=== PATIENT | male | born 1960 | race Caucasian/White ===

== ENCOUNTER 2017-08-02 18:43 | Inpatient (IN) | payer SELFPAY ==
[~2017-08-02] VITALS: Ht 172.7 cm; Wt 110.0 kg
[2017-08-02 18:56] VITALS: BP 145/79; PULSE 91; RESP 20; TEMP 98.1; O2SAT 97
[2017-08-02 19:35] VITALS: BP 154/78; PULSE 93; RESP 20; O2SAT 99
[2017-08-02] MEDS ORDERED: MORPHINE SULFATE 4 MG/ML INJ IV PUSH ONE (19:45)
[2017-08-02] MEDS ORDERED: ONDANSETRON HCL 4 MG/2 ML VIAL IV PUSH ONE (19:45)
[2017-08-02] MEDS ORDERED: SODIUM CHLORIDE 0.9% FLUSH 10 ML FLUSH IVF PRN (19:45)
--- NOTE | 2017-08-02 19:52 | PD ---
HPI Chief Complaint: Musculoskeletal Complaint Time Seen by Provider: 19:36 Travel History International Travel<30 days: No Contact w/Intl Traveler<30days: No Traveled to known affect area: No History of Present Illness HPI Patient states that while he was on the shallow end of the pool he jumped in and immediately felt sharp pain to his right ankle, 10 out of 10, worsened by any type of movement. Patient denies any alleviating factors. Patient denies any associated factors such as cold foot or bluish looking skin, any open lacerations, rash, or pain in any other area of his body. Patient otherwise has no current complaints other than right ankle pain. Patient states he only has allergies that he knows of tetanus vaccine, he got rash from Past medical/surgical history significant for hypertension and appendectomy. [facility] Past Medical History Hypertension: Yes Past Surgical History Appendectomy: Yes Social History Alcohol Use: Yes Tobacco Use: No Substance Use: No Allergies-Medications (Allergen,Severity, Reaction): Coded Allergies: tetanus and diphtheria toxoids (Unverified Adverse Reaction, Severe, Anaphylaxis, 08/02/17) Reported Meds & Prescriptions Reported Meds & Active Scripts Active Active Prescriptions or Reported Medications Unobtainable Review of Systems Musculoskeletal: Positive: Limited ROM, Pain (Right ankle) Physical Exam Narrative GENERAL: SKIN: Warm and dry. Medial malleolus skin tenting but without any skin tears/ laceration. HEAD: Atraumatic. Normocephalic. EYES: Pupils equal and round. No scleral icterus. No injection or drainage. ENT: No nasal bleeding or discharge. Mucous membranes pink and moist. NECK: Trachea midline. No JVD. CARDIOVASCULAR: Regular rate and rhythm. Patient's dorsalis pedis pulse 3+ is strong palpable capillary refill time is 2 seconds RESPIRATORY: No accessory muscle use. Clear to auscultation. Breath sounds equal bilaterally. GASTROINTESTINAL: Abdomen soft, non-tender, nondistended. Hepatic and splenic margins not palpable. MUSCULOSKELETAL: Extremities without clubbing, cyanosis, or edema. Patient has right ankle obvious deformity with lateral deviation at his medial malleolus. Of note no proximal tenderness to palpation when AP lateral pressure was applied to the proximal fibular head area, also no tenderness to palpation to the patella, negative anterior drawer negative posterior drawer and negative tenderness to palpation to MCL or LCL regions. NEUROLOGICAL: Awake and alert. No obvious cranial nerve deficits. Motor grossly within normal limits. Five out of 5 muscle strength in the arms and legs. Normal speech. PSYCHIATRIC: Appropriate mood and affect; insight and judgment normal. Data Data Last Documented VS Vital Signs Date Time Temp Pulse Resp B/P (MAP) Pulse Ox O2 Delivery O2 Flow Rate FiO2 08/02/17 20:29 20 98 Room Air 08/02/17 19:35 93 08/02/17 18:56 98.1 Orders Orders Ankle, Limited (Ap&Lat) (08/02/17 19:43) Tibia/Fibula (Ap/Lat) (08/02/17 19:43) Ice/Cold Pack (08/02/17 19:43) Splint Or Brace Apply/Monitor (08/02/17 19:43) Complete Blood Count With Diff (08/02/17 19:43) Prothrombin Time / Inr (Pt) (08/02/17 19:43) Act Partial Throm Time (Ptt) (08/02/17 19:43) Type And Screen (08/02/17 19:43) Iv Access Insert/Monitor (08/02/17 19:43) Ecg Monitoring (08/02/17 19:43) Oximetry (08/02/17 19:43) Oxygen Administration (08/02/17 19:43) Morphine Inj (Morphine Inj) (08/02/17 19:45) Ondansetron Inj (Zofran Inj) (08/02/17 19:45) Sodium Chloride 0.9% Flush (Ns Flush) (08/02/17 19:45) Propofol 200 Mg/20 Ml Inj (Diprivan 200 (08/02/17 20:45) Admit Order (Ed Use Only) (08/02/17 20:50) Labs Laboratory Tests Test 08/02/17 19:50 White Blood Count 8.0 TH/MM3 Red Blood Count 4.28 MIL/MM3 Hemoglobin 14.0 GM/DL Hematocrit 41.2 % Mean Corpuscular Volume 96.2 FL Mean Corpuscular Hemoglobin 32.6 PG Mean Corpuscular Hemoglobin Concent 33.9 % Red Cell Distribution Width 13.6 % Platelet Count 187 TH/MM3 Mean Platelet Volume 8.5 FL Neutrophils (%) (Auto) 68.8 % Lymphocytes (%) (Auto) 24.5 % Monocytes (%) (Auto) 5.7 % Eosinophils (%) (Auto) 0.7 % Basophils (%) (Auto) 0.3 % Neutrophils # (Auto) 5.5 TH/MM3 Lymphocytes # (Auto) 1.9 TH/MM3 Monocytes # (Auto) 0.5 TH/MM3 Eosinophils # (Auto) 0.1 TH/MM3 Basophils # (Auto) 0.0 TH/MM3 CBC Comment DIFF FINAL Differential Comment Prothrombin Time 10.4 SEC Prothromb Time International Ratio 1.0 RATIO Activated Partial Thromboplast Time 22.4 SEC MDM Medical Decision Making Medical Screen Exam Complete: Yes Emergency Medical Condition: Yes Medical Record Reviewed: Yes Differential Diagnosis Dislocation versus contusion versus fracture versus fracture dislocation Narrative Course After review of x-rays shows right ankle fracture dislocation closed Procedures Procedure Narrative After the risks and benefits were discussed the following procedure was performed: MODERATE SEDATION: The patient was placed on a shelter monitor and pulse oximetry. An ambu bag and suction was immediately available at bedside. The patient was monitored by the nurse. Oxygen saturation, heart rate and blood pressure were monitored. Procedural sedation was acheived using [150MG DIPRIVAN ] . The patient was observed until awake and alert. Procedural Sedation time in attendance was [40] minutes. Using traction countertraction technique right lateral dislocation was reduced to anatomical position, dorsalis pedis pulse remained strong throughout entire procedure, [employer] at bedside placing a posterior long leg splint and ankle stirrup OCL Diagnosis Primary Impression: Closed right ankle fracture dislocation Additional Impression: Status post close reduction Admitting Information Admitting Physician Requests: Admit Scripts Unable to Obtain Active Prescriptions or Reported Jaxon Shen MD Aug 02, 2017 19:52
--- NOTE | 2017-08-02 20:24 | RADRPT ---
EXAM DATE/TIME: 08/02/2017 20:00 [facility] COMPARISON: No previous studies available for comparison. INDICATIONS : Ankle pain after jumping in shallow end of pool. MEDICAL HISTORY : None. SURGICAL HISTORY : None. ENCOUNTER: Initial ACUITY: 1 day PAIN SCORE: 10/10 LOCATION: Right ankle FINDINGS: Fracture dislocation of the ankle. The distal fibula is fractured. There is medial dislocation of t he distal tibia with fracture across the minimally this. The tibia is dislocated anteriorly and medially. CONCLUSION: Fracture dislocation at the ankle.. Casimiro Silver MD FACR on August 02, 2017 at 20:21 Board Certified Radiologist. This report was verified electronically.
--- NOTE | 2017-08-02 20:25 | RADRPT ---
EXAM DATE/TIME: 08/02/2017 20:00 [facility] COMPARISON: No previous studies available for comparison. INDICATIONS : Ankle pain after jumping in shallow end of pool. MEDICAL HISTORY : None. SURGICAL HISTORY : None. ENCOUNTER: Initial ACUITY: 1 day PAIN SCORE: 10/10 LOCATION: Right ankle FINDINGS: Fracture dislocation at the ankle with the distal tibia fracture that B. level of the tibial plafond and dislocated medially and anteriorly. Fibula is fractured as well approximately 5 cm above the tibial plafond. CONCLUSION: Fracture dislocation as above. Casimiro Silver MD FACR on August 02, 2017 at 20:22 Board Certified Radiologist. This report was verified electronically.
[2017-08-02 20:29] VITALS: RESP 20; O2SAT 98
[2017-08-02 20:44] LABS: AUTOMATED NEUTROPHIL # 5.5 TH/MM3 (1.8-7.7); BASOPHIL % 0.3 % (0.0-2.0); EOSINOPHIL # 0.1 TH/MM3 (0-0.4); EOSINOPHIL % 0.7 % (0.0-4.0); HEMATOCRIT 41.2 % (39.0-51.0); LYMPH % 24.5 % (9.0-44.0); LYMPHOCYTE # 1.9 TH/MM3 (1.0-4.8); MEAN CELL VOLUME 96.2 FL (80.0-100.0); MEAN CORPUSCULAR HEMOGLOBIN 32.6 PG (27.0-34.0); MEAN CORPUSCULAR HGB CONC 33.9 % (32.0-36.0); MEAN PLATELET VOLUME 8.5 FL (7.0-11.0); MONO % 5.7 % (0.0-8.0); MONOCYTE # 0.5 TH/MM3 (0-0.9); NEUT % 68.8 % (16.0-70.0); PLATELET COUNT 187 TH/MM3 (150-450); RED BLOOD COUNT 4.28 MIL/MM3 (4.50-5.90); RED CELL DISTRIBUTION WIDTH 13.6 % (11.6-17.2)
[2017-08-02] MEDS ORDERED: PROPOFOL 200 MG/20 ML AMP IV ONE ×2 (20:45→21:30)
[2017-08-02 21:05] LABS: PROTHROMBIN TIME - PATIENT 10.4 SEC (9.8-11.6)
--- NOTE | 2017-08-02 21:41 | RADRPT ---
EXAM DATE/TIME: 08/02/2017 21:15 [facility] COMPARISON: TIBIA/FIBULA RIGHT (AP/LAT), August 02, 2017, 20:00. INDICATIONS : Post reduction right tibia, fell MEDICAL HISTORY : None. SURGICAL HISTORY : None. ENCOUNTER: Subsequent ACUITY: 1 day PAIN SCORE: 2/10 LOCATION: Right Tibia FINDINGS: Alignment is not anatomic. The medial malleolus appears trapped against the tibial plafond. CONCLUSION: Alignment as above Casimiro Silver MD FACR on August 02, 2017 at 21:37 Board Certified Radiologist. This report was verified electronically.
[2017-08-02] MEDS ORDERED: ACETAMINOPHEN 325 MG TAB PO PRN (22:30)
[2017-08-02] MEDS ORDERED: BISACODYL 10 MG SUPP RECTAL PRN (22:30)
[2017-08-02] MEDS ORDERED: ONDANSETRON HCL 4 MG/2 ML VIAL IVP PRN (22:30)
[2017-08-02] MEDS ORDERED: MAGNESIUM HYDROXIDE SUSP 30 ML CUP PO PRN (22:30)
[2017-08-02] MEDS ORDERED: ACETAMINOPHEN/HYDROcodone 325 MG/5 MG TAB PO PRN (22:30)
[2017-08-02] MEDS ORDERED: SENNOSIDES 8.6 MG TAB PO PRN (22:30)
[2017-08-02] MEDS ORDERED: SODIUM CHLORIDE 0.9% FLUSH 10 ML FLUSH IV FLUSH PRN (22:30)
[2017-08-02] MEDS ORDERED: LACTULOSE SYRUP 20 GM/30 ML CUP PO PRN (22:30)
[2017-08-02 22:41] VITALS: BP 169/84; PULSE 96; RESP 18; TEMP 97.8; O2SAT 97
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
[2017-08-02] MEDS: SODIUM CHLOR 0.9% 1000 ML INJ 1,000 ML IV SCH (23:30)
[2017-08-02] MEDS: MORPHINE SULFATE 2 MG/ML INJ IV PUSH PRN (23:37)
[2017-08-03] MEDS ORDERED: SODIUM CHLORID 0.9% 500 ML IV PRN (01:30)
[2017-08-03] MEDS ORDERED: CHLORHEXIDINE GLUCONATE 2 % 1 PACK (2 CLOTHS) TOPICAL PRN (01:30)
[2017-08-03] MEDS ORDERED: POVIDONE IODINE 5% (ANTISEPSIS KIT) 4 APPLICATIONS EACH NARE PRN (01:30)
[2017-08-03] MEDS: MORPHINE SULFATE 2 MG/ML INJ IV PUSH PRN ×2 (02:51→06:29)
[2017-08-03 04:00] VITALS: BP 190/92; PULSE 98; RESP 20; TEMP 97.4; O2SAT 97
[2017-08-03 06:25] LABS: ALT (GPT) 37 U/L (12-78)
[2017-08-03 06:27] LABS: ALKALINE PHOSPHATASE 41 U/L (45-117); TOTAL BILIRUBIN ADULT 0.4 MG/DL (0.2-1.0); TOTAL PROTEIN 7.2 GM/DL (6.4-8.2)
[2017-08-03 06:31] LABS: ALBUMIN 3.4 GM/DL (3.4-5.0); AST (GOT) 25 U/L (15-37); BICARBONATE 24.7 MEQ/L (21.0-32.0); BLOOD UREA NITROGEN 14 MG/DL (7-18); CALCIUM 8.3 MG/DL (8.5-10.1); CHLORIDE 103 MEQ/L (98-107); CREATININE 0.99 MG/DL (0.60-1.30); GLOMERULAR FILTRATION RATE 78 ML/MIN (>89); GLUCOSE,RANDOM 107 MG/DL (74-106); SODIUM (NA) 137 MEQ/L (136-145)
[2017-08-03] MEDS: LACTATED RINGER'S 1000 ML IV PRN ×2 (06:39→07:33)
[2017-08-03] MEDS ORDERED: ceFAZolin INJ 1,000 MG VIAL ONE (06:48)
[2017-08-03] MEDS ORDERED: VANCOMYCIN HCL 1000 MG VIAL ONE (06:48)
[2017-08-03] MEDS ORDERED: GENTAMICIN SULFATE 80 MG/2 ML VIAL ONE (06:49)
[2017-08-03] MEDS ORDERED: SODIUM CHLOR 0.9% 250 ML INJ 250 ML ONE (06:49)
[2017-08-03] MEDS ORDERED: ACETAMINOPHEN 1000 MG/100 ML 100 ML IV ONE (07:13)
[2017-08-03 07:16] LABS: AUTOMATED NEUTROPHIL # 6.6 TH/MM3 (1.8-7.7); BASOPHIL % 0.2 % (0.0-2.0); EOSINOPHIL # 0.1 TH/MM3 (0-0.4); EOSINOPHIL % 0.5 % (0.0-4.0); HEMOGLOBIN 12.8 GM/DL (13.0-17.0); LYMPHOCYTE # 2.2 TH/MM3 (1.0-4.8); MEAN CELL VOLUME 95.6 FL (80.0-100.0); MEAN CORPUSCULAR HEMOGLOBIN 32.9 PG (27.0-34.0); MEAN CORPUSCULAR HGB CONC 34.4 % (32.0-36.0); MEAN PLATELET VOLUME 8.3 FL (7.0-11.0); MONO % 7.9 % (0.0-8.0); MONOCYTE # 0.8 TH/MM3 (0-0.9); NEUT % 68.4 % (16.0-70.0); PLATELET COUNT 173 TH/MM3 (150-450); RED BLOOD COUNT 3.88 MIL/MM3 (4.50-5.90); RED CELL DISTRIBUTION WIDTH 13.7 % (11.6-17.2); WHITE BLOOD COUNT 9.6 TH/MM3 (4.0-11.0)
[2017-08-03] MEDS: SODIUM CHLOR 0.9% 1000 ML INJ 1,000 ML IV SCH ×2 (08:19→15:50)
[2017-08-03] MEDS ORDERED: HYDR-3366 PO (08:50)
[2017-08-03] MEDS ORDERED: XARE10TA PO (08:50)
--- NOTE | 2017-08-03 08:53 | PD.OP ---
cc: Rock Love MD Operative Report Date of Surgery: Aug 03, 2017 Preoperative Diagnosis: Displaced right ankle trimalleolar fracture Postoperative Diagnosis: Procedure: Open reduction internal fixation right ankle trimalleolar fracture, stress exam of syndesmosis, open reduction and fixation right ankle syndesmosis Anesthesia: Gen. Surgeon: Rock Love Brass Polisher(s): TIERA Vargas PA-C The surgical procedure was assisted by my physician physical laboratory assistant. My P.A. presence was necessary throughout this case for the manipulation and positioning of the surgical extremity. My P.A. was assisting me throughout the duration of this procedure. The skill set of a physician physical laboratory assistant was medically necessary to complete this procedure. During the surgical case the instructor adjunct surgical technician was working at the back table and the physician physical laboratory assistant was directly assisting me. Operation and Findings: Implants used: Synthes Plan of activity: Nonweightbearing 6 weeks Patient was seen and evaluated preoperatively and found to have a displaced right ankle trimalleolar ankle fracture. Informed consent was obtained after a detailed discussion of risk and benefits of surgery. The operative site was marked. Patient was brought to the OR, placed on the OR table, and given IV sedation and general endotracheal anesthesia. IV antibiotics were given preoperatively. A timeout procedure was performed. The left leg was prepped with alcohol followed by Hibiclens and draped in the usual sterile fashion. Attention was turned towards the distal fibula. A four-inch incision was made over the distal fibula. The subcutaneous tissue was dissected with Bovie. The fracture site was visualized. The fracture site was cleaned with curets. The fracture was now reduced. The fracture keyed into anatomic alignment. K-wires were used to hold provisional fixation. A Synthes plate was selected. The plate was provisionally held to bone with K-wires. 3.5 cortical screws were used to compress the plate to bone. Multiple screws were placed above and below the fracture. Next attention was turned towards the medial malleolus. The medial malleolus supposed through a 3 cm incision. Saphenous vein was retracted. Fracture was visualized. Fracture was cleaned with curettes. Fracture was now reduced and keyed into anatomic alignment. K wires were used to hold provisional fixation. 2 guidepins for the 4.0 cannulated screws were placed in a retrograde fashion across the fracture. Fluoroscopy was used to confirm guidepin placement. Cannulated drill was placed over the guidepin. 2 appropriate length screws were now placed. Good compression was applied. Fluoroscopy confirmed well aligned fracture with well-placed hardware. Next, attention was turned to the syndesmosis. The syndesmosis was stressed. There was clear widening of the syndesmosis with external rotation of the ankle. The syndesmosis was now held in a reduced position with the ankle in neutral position. Two Synthes 3.5 cortical screws were now placed through the fibula plate into the tibia. Fluoroscopy confirmed appropriate screw placement with well-aligned syndesmosis. Incisions were thoroughly irrigated. The subcutaneous tissue was closed with 3-0 Vicryl and the skin was closed with 3-0 nylon. Sterile dressings were applied. A well molded well-padded splint was applied. The patient was transferred to Recovery in stable condition. Needle and sponge counts were correct. Rock Love MD Aug 03, 2017 08:53
[2017-08-03] MEDS: DOCUSATE SODIUM 50 MG/SENNA 8.6 MG TAB PO SCH ×2 (09:00→19:36)
[2017-08-03] MEDS ORDERED: MORPHINE SULFATE 4 MG/ML INJ IV PUSH PRN (09:00)
[2017-08-03] MEDS ORDERED: Post-op Orders (for Pharmacy) XX ONE (09:00)
[2017-08-03] MEDS: SODIUM CHLORIDE 0.9% FLUSH 10 ML FLUSH IV FLUSH SCH ×2 (09:00→21:00)
[2017-08-03] MEDS ORDERED: NALOXONE HCL 0.4 MG/ML AMP ONE (09:25)
[2017-08-03] MEDS ORDERED: DO NOT ADM ANY ANTICOAGULANT DRUGS PRN (09:38)
[2017-08-03] MEDS ORDERED: MIDAZOLAM HCL 2 MG/2 ML VIAL ONE (09:50)
[2017-08-03] MEDS ORDERED: INFLUENZA VIRUS VACCINE (QUADRIVALENT) 0.5 ML SYR IM ONE (10:00)
[2017-08-03] MEDS ORDERED: *morphine SULFATE 4 MG/ML PERIprocedure ONLY ONE ×2 (10:02→10:09)
[2017-08-03] MEDS ORDERED: HYDROmorphone HCL PF 2 MG/ML VIAL ONE (10:17)
[2017-08-03 11:00] VITALS: BP 158/72; PULSE 99; RESP 18; TEMP 97.7; O2SAT 91
--- NOTE | 2017-08-03 11:50 | HHI.PR ---
Subjective Remarks Mr. Fisher is a 57-year-old patient with a history of hypertension who jumped into the shallow end of a pool and immediately felt sharp pain to his right ankle. Right ankle dislocation with tibia and fibula fracture noted on ankle x- ray. The ER physician attempted manual closed reduction. The patient is admitted to the hospitalist service for surgical repair of ankle fracture dislocation. Dr. Rock Garay, orthopedic surgeon, has been consulted. The patient is seen in his hospital room. He reports that his pain level was 10 out of 10, sharp and stabbing upon presentation to the emergency room. He states that the medication given down in the ED brought his pain level down to a 3 or 4 but it is creeping back up again. He is requesting additional pain medication. He is from [place] and was vacationing here in [place] since last Thursday. He is supposed to return home tomorrow. 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 The patient has hypertension and takes what I believe to be Diovan 80 mg p.o. every morning. His will bring his medication in the morning for clarification. He denies any recent fevers, chills, chest pain, shortness of breath, nausea, vomiting, or diarrhea. He states he was in his normal state of health prior to jumping in the pool today. 08-[address] GARAY Open reduction internal fixation right ankle trimalleolar fracture, stress exam of syndesmosis, open reduction and fixation right ankle syndesmosis NO NEW COMPLAINTS AT THIS TIME DW RN AND PT AND CM Objective Vitals Vital Signs Date Time Temp Pulse Resp B/P (MAP) Pulse Ox O2 Delivery O2 Flow Rate FiO2 08/03/17 10:30 98.6 92 22 158/65 (96) 95 Nasal Cannula 2 08/03/17 10:15 94 20 161/57 (91) 96 Nasal Cannula 2 08/03/17 10:00 92 20 178/75 (109) 97 Nasal Cannula 2 08/03/17 09:45 91 22 197/91 (126) 98 Nasal Cannula 2 08/03/17 09:39 98.5 90 15 180/98 (125) 100 Simple Mask 6 08/03/17 04:00 97.4 98 20 190/92 (124) 97 08/02/17 22:41 97.8 96 18 169/84 (112) 97 08/02/17 22:26 08/02/17 20:29 20 98 Room Air 08/02/17 20:28 99 Room Air 08/02/17 19:35 93 20 154/78 (103) 99 Room Air 08/02/17 19:34 95 20 08/02/17 18:56 98.1 91 20 145/79 (101) 97 I/O 08/02/17 08/02/17 08/02/17 08/03/17 08/03/17 08/03/17 07:00 15:00 23:00 07:00 15:00 23:00 Intake Total 1200 ml Output Total 925 ml 50 ml Balance -925 ml 1150 ml Other 1200 ml Output Urine Total 925 ml Estimated Blood Loss 50 ml # Voids 1 Result Diagram: 08/03/17 0535 08/03/17 0535 Other Results Laboratory Tests Test 08/02/17 19:50 08/03/17 05:35 White Blood Count 8.0 TH/MM3 9.6 TH/MM3 Red Blood Count 4.28 MIL/MM3 3.88 MIL/MM3 Hemoglobin 14.0 GM/DL 12.8 GM/DL Hematocrit 41.2 % 37.0 % Mean Corpuscular Volume 96.2 FL 95.6 FL Mean Corpuscular Hemoglobin 32.6 PG 32.9 PG Mean Corpuscular Hemoglobin Concent 33.9 % 34.4 % Red Cell Distribution Width 13.6 % 13.7 % Platelet Count 187 TH/MM3 173 TH/MM3 Mean Platelet Volume 8.5 FL 8.3 FL Neutrophils (%) (Auto) 68.8 % 68.4 % Lymphocytes (%) (Auto) 24.5 % 23.0 % Monocytes (%) (Auto) 5.7 % 7.9 % Eosinophils (%) (Auto) 0.7 % 0.5 % Basophils (%) (Auto) 0.3 % 0.2 % Neutrophils # (Auto) 5.5 TH/MM3 6.6 TH/MM3 Lymphocytes # (Auto) 1.9 TH/MM3 2.2 TH/MM3 Monocytes # (Auto) 0.5 TH/MM3 0.8 TH/MM3 Eosinophils # (Auto) 0.1 TH/MM3 0.1 TH/MM3 Basophils # (Auto) 0.0 TH/MM3 0.0 TH/MM3 CBC Comment DIFF FINAL DIFF FINAL Differential Comment Prothrombin Time 10.4 SEC Prothromb Time International Ratio 1.0 RATIO Activated Partial Thromboplast Time 22.4 SEC Blood Urea Nitrogen 14 MG/DL Creatinine 0.99 MG/DL Random Glucose 107 MG/DL Total Protein 7.2 GM/DL Albumin 3.4 GM/DL Calcium Level 8.3 MG/DL Alkaline Phosphatase 41 U/L Aspartate Amino Transf (AST/SGOT) 25 U/L Alanine Aminotransferase (ALT/SGPT) 37 U/L Total Bilirubin 0.4 MG/DL Sodium Level 137 MEQ/L Potassium Level 4.0 MEQ/L Chloride Level 103 MEQ/L Carbon Dioxide Level 24.7 MEQ/L Anion Gap 9 MEQ/L Estimat Glomerular Filtration Rate 78 ML/MIN Objective Remarks GENERAL: Alert and oriented 3 talkative and cooperative SKIN: Warm and dry. Right lower extremity is dressed HEAD: Atraumatic. Normocephalic. EYES: Pupils equal and round. No scleral icterus. No injection or drainage. Extraocular muscles intact ENT: No nasal bleeding or discharge. Mucous membranes pink and moist. Tongue is midline NECK: Trachea midline. No JVD. Supple CARDIOVASCULAR: Regular rate and rhythm. S1-S2 no S3 or S4 RESPIRATORY: No accessory muscle use. Clear to auscultation. Breath sounds equal bilaterally. GASTROINTESTINAL: Abdomen soft, non-tender, nondistended. Hepatic and splenic margins not palpable. MUSCULOSKELETAL: Extremities without clubbing, cyanosis, or edema. No obvious deformities. Right lower extremity is dressed in splint NEUROLOGICAL: Awake and alert. No obvious cranial nerve deficits. Motor grossly within normal limits. Five out of 5 muscle strength in the arms and legs except right lower extremity not able to really assess at this point. Normal speech. PSYCHIATRIC: Appropriate mood and affect; insight and judgment normal. Procedures Open reduction internal fixation right ankle trimalleolar fracture, stress exam of syndesmosis, open reduction and fixation right ankle syndesmosis 08-03 Date of Surgery: Aug 03, 2017 Preoperative Diagnosis: Displaced right ankle trimalleolar fracture Postoperative Diagnosis: Procedure: Open reduction internal fixation right ankle trimalleolar fracture, stress exam of syndesmosis, open reduction and fixation right ankle syndesmosis Anesthesia: Gen. Surgeon: Rock Garay Primary Care Md(s): TIERA Vargas PA-C The surgical procedure was assisted by my physician care assistant. My P.A. presence was necessary throughout this case for the manipulation and positioning of the surgical extremity. My P.A. was assisting me throughout the duration of this procedure. The skill set of a physician care assistant was medically necessary to complete this procedure. During the surgical case the certified ophthalmic surgical assistant was working at the back table and the physician care assistant was directly assisting me. Operation and Findings: Implants used: Synthes Plan of activity: Nonweightbearing 6 weeks Patient was seen and evaluated preoperatively and found to have a displaced right ankle trimalleolar ankle fracture. Informed consent was obtained after a detailed discussion of risk and benefits of surgery. The operative site was marked. Patient was brought to the OR, placed on the OR table, and given IV sedation and general endotracheal anesthesia. IV antibiotics were given preoperatively. A timeout procedure was performed. The left leg was prepped with alcohol followed by Hibiclens and draped in the usual sterile fashion. Attention was turned towards the distal fibula. A four-inch incision was made over the distal fibula. The subcutaneous tissue was dissected with Bovie. The fracture site was visualized. The fracture site was cleaned with curets. The fracture was now reduced. The fracture keyed into anatomic alignment. K-wires were used to hold provisional fixation. A Synthes plate was selected. The plate was provisionally held to bone with K-wires. 3.5 cortical screws were used to compress the plate to bone. Multiple screws were placed above and below the fracture. Next attention was turned towards the medial malleolus. The medial malleolus supposed through a 3 cm incision. Saphenous vein was retracted. Fracture was visualized. Fracture was cleaned with curettes. Fracture was now reduced and keyed into anatomic alignment. K wires were used to hold provisional fixation. 2 guidepins for the 4.0 cannulated screws were placed in a retrograde fashion across the fracture. Fluoroscopy was used to confirm guidepin placement. Cannulated drill was placed over the guidepin. 2 appropriate length screws were now placed. Good compression was applied. Fluoroscopy confirmed well aligned fracture with well-placed hardware. Next, attention was turned to the syndesmosis. The syndesmosis was stressed. There was clear widening of the syndesmosis with external rotation of the ankle. The syndesmosis was now held in a reduced position with the ankle in neutral position. Two Synthes 3.5 cortical screws were now placed through the fibula plate into the tibia. Fluoroscopy confirmed appropriate screw placement with well-aligned syndesmosis. Incisions were thoroughly irrigated. The subcutaneous tissue was closed with 3-0 Vicryl and the skin was closed with 3-0 nylon. Sterile dressings were applied. A well molded well-padded splint was applied. The patient was transferred to Recovery in stable condition. Needle and sponge counts were correct. Rock Garay MD Aug 03, 2017 08:53 Medications and IVs Current Medications Morphine Sulfate (Morphine Inj) 4 mg ONCE ONCE IV PUSH Last administered on 19:53; Start 08/02/17 at 19:45; Stop 08/02/17 at 19:46; Status DC Ondansetron HCl (Zofran Inj) 4 mg ONCE ONCE IV PUSH Last administered on 19:53; Start 08/02/17 at 19:45; Stop 08/02/17 at 19:46; Status DC Sodium Chloride (NS Flush) 2 ml UNSCH PRN IVF FLUSH AFTER USING IV ACCESS; Start 08/02/17 at 19:45; Stop 08/02/17 at 22:43; Status DC Propofol (Diprivan 200 Mg/20 ml Inj) 50 mg ONCE ONCE IV ; Start 08/02/17 at 20 :45; Stop 08/02/17 at 21:20; Status DC Propofol (Diprivan 200 Mg/20 ml Inj) 200 mg ONCE ONCE IV Last administered on 08/02/17at 21:38; Start 08/02/17 at 21:30; Stop 08/02/17 at 21:31; Status DC Sodium Chloride 1,000 ml @ 100 mls/hr Q10H IV Last administered on 08/02/17 23:30; Start 08/02/17 at 22:19 Sodium Chloride (NS Flush) 2 ml UNSCH PRN IV FLUSH FLUSH AFTER USING IV ACCESS ; Start 08/02/17 at 22:30 Sodium Chloride (NS Flush) 2 ml BID IV FLUSH ; Start 08/03/17 at 09:00 Ondansetron HCl (Zofran Inj) 4 mg Q6H PRN IVP NAUSEA OR VOMITING Last administered on 3/25/18at 23:37; Start 08/02/17 at 22:30 Acetaminophen (Tylenol) 650 mg Q6H PRN PO FEVER/PAIN SCALE 1 TO 2; Start at 22:30 Acetaminophen/ Hydrocodone Bitart (Wapello 5-325 Mg) 1 tab Q4H PRN PO PAIN SCALE 3 TO 5; Start 08/02/17 at 22:30; Stop 08/03/17 at 10:09; Status DC Morphine Sulfate (Morphine Inj) 2 mg Q3H PRN IV PUSH Pain 6-10 Last administered on 08/03/17at 06:29; Start 08/02/17 at 22:30; Stop 08/03/17 at 10:10 ; Status DC Senna/Docusate Sodium (Sona-Colace) 1 tab BID PO ; Start 08/03/17 at 09:00 Magnesium Hydroxide (Milk Of Magnesia Liq) 30 ml Q12H PRN PO Mild constipation ; Start 08/02/17 at 22:30 Sennosides (Senokot) 17.2 mg Q12H PRN PO Moderate constipation; Start 08/02/17 at 22:30 Bisacodyl (Dulcolax Supp) 10 mg DAILY PRN RECTAL SEVERE CONSITIPATION; Start at 22:30 Lactulose (Lactulose Liq) 30 ml DAILY PRN PO SEVERE CONSITIPATION; Start at 22:30 Influenza Virus Vaccine (Flu (Quadrivalent) Vaccine Inj) 0.5 ml ONCE ONCE IM ; Start 08/03/17 at 10:00; Stop 08/03/17 at 10:01; Status DC Lactated Ringer's 1,000 ml @ 30 mls/hr Q24H PRN IV SEE LABEL COMMENTS Last administered on 08/03/17at 07:33; Start 08/03/17 at 01:30; Stop 08/06/17 at 01:29 Sodium Chloride 500 ml @ 30 mls/hr [id number] PRN IV SEE LABEL COMMENTS; Start at 01:30; Stop 08/06/17 at 01:29 Povidone Iodine (Betadine 5% Antisepsis Kit) 1 applic GAGE DESIGNER PRN EACH NARE SEE LABEL COMMENTS; Start 08/03/17 at 01:30; Stop 08/06/17 at 01:29 Chlorhexidine Gluconate (Chlorhexidine 2% Cloth) 3 pack GAGE DESIGNER PRN TOPICAL SEE LABEL COMMENTS; Start 08/03/17 at 01:30; Stop 08/06/17 at 01:29 Vancomycin HCl (Vancomycin Inj) 1,000 mg STK-MED ONCE .ROUTE Last administered on 08/03/17at 08:07; Start 08/03/17 at 06:48; Stop 08/03/17 at 06:49; Status DC Cefazolin Sodium (Ancef Inj) 2,000 mg STK-MED ONCE .ROUTE Last administered on 08/03/17at 08:13; Start 08/03/17 at 06:48; Stop 08/03/17 at 06:49; Status DC Gentamicin Sulfate (Gentamicin Inj) 240 mg STK-MED ONCE .ROUTE Last administered on 08/03/17at 08:18; Start 08/03/17 at 06:49; Stop 08/03/17 at 06:50 ; Status DC Sodium Chloride 250 ml @ As Directed STK-MED ONCE .ROUTE Last administered on 08/03/17at 08:07; Start 08/03/17 at 06:49; Stop 08/03/17 at 06:50; Status DC Acetaminophen 100 ml @ As Directed STK-MED ONCE IV ; Start 08/03/17 at 07:13; Stop 08/03/17 at 07:14; Status DC Miscellaneous Information (Post-op Orders (for Pharmacy)) STAT ONCE XX ; Start 08/03/17 at 09:00; Stop 08/03/17 at 10:10; Status DC Cefazolin Sodium/ Dextrose 50 ml @ 100 mls/hr Q8H IV ; Start 08/03/17 at 16:00 ; Stop 08/03/17 at 16:29 Acetaminophen/ Hydrocodone Bitart (Wapello 10-325 Mg) 1 tab Q3H PRN PO PAIN 3<10 ; Start 08/03/17 at 09:00 Morphine Sulfate (Morphine Inj) 4 mg Q3H PRN IV PUSH break thru pain; Start at 09:00 Naloxone HCl (Narcan Inj) 0.4 mg STK-MED ONCE .ROUTE ; Start 08/03/17 at 09:25; Stop 08/03/17 at 09:26; Status DC Midazolam HCl (Versed Inj) 2 mg STK-MED ONCE .ROUTE ; Start 08/03/17 at 09:50; Stop 08/03/17 at 09:51; Status DC Fentanyl Citrate (fentaNYL INJ) 100 mcg STK-MED ONCE .ROUTE ; Start 08/03/17 at 09:50; Stop 08/03/17 at 09:51; Status DC Morphine Sulfate (*morphine INJ PERIprocedure ONLY) 4 mg STK-MED ONCE .ROUTE Last administered on 08/03/17at 10:04; Start 08/03/17 at 10:02; Stop 08/03/17 at 10:03; Status DC Morphine Sulfate (*morphine INJ PERIprocedure ONLY) 4 mg STK-MED ONCE .ROUTE Last administered on 08/03/17at 10:10; Start 08/03/17 at 10:09; Stop 08/03/17 at 10:10; Status DC Hydromorphone HCl (Dilaudid Pf Inj) 2 mg STK-MED ONCE .ROUTE Last administered on 08/03/17at 10:18; Start 08/03/17 at 10:17; Stop 08/03/17 at 10:18; Status DC Miscellaneous Information ALL NURSING DEPARTME... UNSCH PRN .XX SEE LABEL COMMENTS; Start 08/03/17 at 09:38; Stop 08/04/17 at 09:37 A/P Problem List: (1) Tibia/fibula fracture ICD Code: S82.209A - Unspecified fracture of shaft of unspecified tibia, initial encounter for closed fracture; S82.409A - Unspecified fracture of shaft of unspecified fibula, initial encounter for closed fracture (2) Ankle dislocation ICD Code: S93.06XA - Dislocation of unspecified ankle joint, initial encounter Assessment and Plan Mr. Fisher is a 57-year-old patient with a history of hypertension who jumped into the shallow end of a pool and immediately felt sharp pain to his right ankle. Right ankle dislocation with tibia and fibula fracture noted on ankle x- ray. The patient is admitted to the hospitalist service for surgical repair of ankle fracture dislocation. Ankle dislocation with tibia and fibula fractures - The patient underwent closed reduction was attempted in the ER and a long-leg splint was applied to right leg following the procedure. - Orthopedics consulted, Dr. Garay aware, appreciate assistance - Analgesia with as needed morphine and Wapello as needed for pain - NPO. for surgery in the morning - IV fluid hydration with normal saline at 100 cc/h Hypertension resume his home medications if able to be reconciled if not as needed Catapres DVT prophylaxis - SCD/BAUDILIO to nonoperative leg Discharge Planning Pending orthopedic clearance and physical therapy and occupational clear Casimiro Frost DO Aug 03, 2017 11:50
[2017-08-03] MEDS ORDERED: METOPROLOL TARTRATE 5 MG/5 ML VIAL IV ONE (12:00)
[2017-08-03] MEDS ORDERED: GLYCOPYRROLATE 1 MG/5 ML SYRINGE IV PUSH ONE (12:00)
[2017-08-03] MEDS ORDERED: DEXAMETHASONE SOD PHOS 4 MG/ML VIAL IV ONE (12:00)
[2017-08-03] MEDS ORDERED: PROPOFOL 200 MG/20 ML AMP IV ONE (12:00)
[2017-08-03] MEDS ORDERED: SUCCINYLCHOLINE CHLORIDE 100 MG/5 ML SYRINGE IV PUSH ONE (12:00)
[2017-08-03] MEDS ORDERED: ONDANSETRON HCL 4 MG/2 ML VIAL IV ONE (12:00)
[2017-08-03] MEDS ORDERED: NEOSTIGMINE 5 MG/5 ML SYRINGE IV PUSH ONE (12:00)
[2017-08-03] MEDS ORDERED: cloNIDine HCL 0.1 MG TAB PO PRN (12:00)
[2017-08-03] MEDS ORDERED: hydrALAZINE HCL 20 MG/ML VIAL IV ONE (12:00)
[2017-08-03] MEDS ORDERED: SODIUM CHLORIDE 0.9% 20 ML VIAL IV ONE (12:00)
[2017-08-03] MEDS ORDERED: LIDOCAINE HCL 1% PF 5 ML SYRINGE OTHER ONE (12:00)
--- NOTE | 2017-08-03 12:04 | MB ---
cc: Rock Xavier MD DATE: 08/03/2017 REASON FOR CONSULTATION: Right ankle trimalleolar fracture-dislocation. CONSULTING PHYSICIAN: Dr. Gan. HISTORY OF PRESENT ILLNESS: Ramses is a 57-year-old male who is visiting from [place]. He jumped into a pool. The pool was more shallow than he thought. He had immediate right ankle pain and deformity. He presented to the Emergency Room where x-rays revealed a fracture-dislocation of his right ankle. He has been admitted for treatment of this injury. He underwent closed reduction in the emergency room. He is currently awake and alert on the orthopedic floor. His only complaint is his right ankle. Pain is improved with rest. He denies any dizziness, syncope or loss of consciousness. PAST MEDICAL HISTORY: Illnesses: Hypertension. PAST SURGICAL HISTORY: Appendectomy and left hand surgery. MEDICATIONS: Diovan. ALLERGIES: TETANUS AND DIPHTHERIA TOXINS. SOCIAL HISTORY: The patient denies tobacco or drug use. He drinks alcohol occasionally. REVIEW OF SYSTEMS: The patient denies headache, visual changes, neck pain, chest pain, shortness of breath, abdominal pain, nausea, vomiting, recent weight loss, fever, chills or numbness or tingling of extremities. He complains of right ankle pain. The pain is worse with movement. FAMILY HISTORY: Positive for myocardial infarction in his father and brother. PHYSICAL EXAMINATION: GENERAL: The patient is a well-developed, well-nourished, 57-year-old male in no acute distress. He is awake and alert. He is alert and oriented x 3. He is mildly overweight. VITAL SIGNS: Temperature 97.4, pulse 98, respirations 20, blood pressure 190/92, O2 saturation 97% on room air. HEENT: The patient is normocephalic. Pupils are equal. NECK: Soft, nontender. The trachea is in the midline. ABDOMEN: Soft, nontender, nondistended. EXTREMITIES: Examination of bilateral upper extremities reveals no pain with shoulder, elbow and wrist motion. He has intact sensation in all fingers. He has good cap refill in all fingers. Radial pulses are palpable. Skin is intact. Examination of left leg reveals no pain with hip, knee or ankle motion. Skin is intact. Dorsalis pedis pulses palpable. Sensation is intact. Examination of right leg reveals no pain with hip or knee motion. He has mild swelling of the ankle. He is tender to palpation over the medial and lateral aspects of the ankle. Skin is intact. Dorsalis pedis pulses palpable. Calf compartments are soft. LABORATORY DATA: The patient has a white blood cell count of 9.6, hemoglobin of 12.8, hematocrit 37.0, platelet count of 173. INR is 1.0. BUN is 14 and creatinine 0.99. X-RAYS: X-rays of the right ankle were reviewed. The patient initially had a fracture-dislocation of the right ankle. Post-reduction x-rays reveal the tibiotalar joint is reduced. IMPRESSION: 1. Hypertension. 2. Displaced right ankle trimalleolar fracture. PLAN: Treatment options were discussed with the patient. At this point, I would recommend open reduction and internal fixation of right ankle and possible open reduction and internal fixation of the syndesmosis. Risks of surgery include bleeding, infection, injuries to arteries, nerves and blood vessels, nonunion, malunion, painful hardware, wound infection, ankle stiffness, ankle arthritis as well as medical complications including blood clot, stroke, heart attack and . All questions were answered. I will plan on surgery today. A mid-level provider in my office, nurse practitioner or PA, may see this patient on a follow-up basis and continue to implement the objective of this plan including: Starting or adjusting medications, injections of muscle, tendon, bursa or joints, cast application, orthotic or brace application, physical therapy, further radiographic studies including x-ray, MRI, CT, ultrasounds or bone scan, vascular studies, neurologic studies, or other specialist consultations, and proceeding with surgical management as appropriate. MD OJ Brown/RAMONE/oneal , 08:57 AM , 09:33 AM AIDA
[2017-08-03 15:39] VITALS: BP 162/80; PULSE 95; RESP 18; TEMP 97.9; O2SAT 93
[2017-08-03] MEDS: ACETAMINOPHEN/HYDROcodone 325 MG/10 MG TAB PO PRN ×3 (15:47→23:14)
[2017-08-03] MEDS ORDERED: CEFAZOLIN INJ 2,000 MG in SODIUM CHLORIDE 0.9% INJ 100 ML IV SCH (16:00)
[2017-08-03] MEDS ORDERED: ceFAZolin 2 GM PREMIX 50 ML IV SCH (16:00)
[2017-08-03] MEDS ORDERED: VALS1TAB64 PO (18:04)
[2017-08-03] MEDS ORDERED: VALSARTAN 80 MG TAB PO ONE (18:30)
--- NOTE | 2017-08-03 19:01 | RADRPT ---
EXAM DATE/TIME: 08/03/2017 08:41 [facility] COMPARISON: No previous studies available for comparison. INDICATIONS : Open reduction internal fixation right ankle. MEDICAL HISTORY : None. SURGICAL HISTORY : None. ENCOUNTER: Initial ACUITY: 1 day PAIN SCORE: Non-responsive. LOCATION: Right Ankle FINDINGS: There is bimalleolar fixation across ankle fractures. Normal alignment post surgery. Posterior malleo kathryn fracture also present. CONCLUSION: 1. Normal alignment post fixation of malleolar fractures. Antoni Suh MD on August 03, 2017 at 18:57 Board Certified Radiologist. This report was verified electronically.
[2017-08-03 20:00] VITALS: BP 171/77; PULSE 95; RESP 18; TEMP 98; O2SAT 94
[2017-08-03 23:30] VITALS: BP 153/67; PULSE 89; RESP 16; TEMP 98.2; O2SAT 95
--- NOTE | 2017-08-04 00:13 | EKG ---
Date Performed: 08/03/2017 Time Performed: 05:52:54 PTAGE: 57 years EKG: Sinus rhythm . Normal ECG NO PREVIOUS TRACING DOCTOR: Yvette Bishop Interpretating Date/Time 08/04/2017 00:05:49
[2017-08-04] MEDS: SODIUM CHLOR 0.9% 1000 ML INJ 1,000 ML IV SCH (04:19)
[2017-08-04] MEDS: ACETAMINOPHEN/HYDROcodone 325 MG/10 MG TAB PO PRN ×3 (04:37→10:13)
[2017-08-04 04:45] VITALS: BP 142/79; PULSE 87; RESP 18; TEMP 97; O2SAT 97
[2017-08-04 05:54] LABS: AUTOMATED NEUTROPHIL # 6.9 TH/MM3 (1.8-7.7); HEMATOCRIT 34.9 % (39.0-51.0); HEMOGLOBIN 11.9 GM/DL (13.0-17.0); LYMPH % 16.1 % (9.0-44.0); LYMPHOCYTE # 1.5 TH/MM3 (1.0-4.8); MEAN CELL VOLUME 96.8 FL (80.0-100.0); MEAN CORPUSCULAR HEMOGLOBIN 33.1 PG (27.0-34.0); MEAN CORPUSCULAR HGB CONC 34.2 % (32.0-36.0); MONO % 9.1 % (0.0-8.0); MONOCYTE # 0.8 TH/MM3 (0-0.9); NEUT % 74.8 % (16.0-70.0); PLATELET COUNT 163 TH/MM3 (150-450); RED CELL DISTRIBUTION WIDTH 13.8 % (11.6-17.2); WHITE BLOOD COUNT 9.2 TH/MM3 (4.0-11.0)
[2017-08-04 06:23] LABS: ALBUMIN 3.2 GM/DL (3.4-5.0); ALT (GPT) 32 U/L (12-78); AST (GOT) 32 U/L (15-37); BICARBONATE 27.9 MEQ/L (21.0-32.0); BLOOD UREA NITROGEN 13 MG/DL (7-18); CALCIUM 8.1 MG/DL (8.5-10.1); CHLORIDE 104 MEQ/L (98-107); CREATININE 0.96 MG/DL (0.60-1.30); GLOMERULAR FILTRATION RATE 81 ML/MIN (>89); GLUCOSE,RANDOM 101 MG/DL (74-106); MAGNESIUM 2.1 MG/DL (1.5-2.5); PHOSPHORUS 2.6 MG/DL (2.5-4.9); SODIUM (NA) 141 MEQ/L (136-145)
[2017-08-04 06:31] LABS: ALKALINE PHOSPHATASE 37 U/L (45-117); FREE T4 1.22 NG/DL (0.76-1.46); TOTAL BILIRUBIN ADULT 0.4 MG/DL (0.2-1.0); TOTAL PROTEIN 7.1 GM/DL (6.4-8.2)
[2017-08-04] MEDS: DOCUSATE SODIUM 50 MG/SENNA 8.6 MG TAB PO SCH (07:30)
[2017-08-04 08:00] VITALS: BP 164/79; PULSE 84; RESP 20; TEMP 97.4; O2SAT 96
[2017-08-04] MEDS ORDERED: WALKER WHEELS/F1 MIS (08:17)
[2017-08-04] MEDS ORDERED: PERI PO (08:17)
--- NOTE | 2017-08-04 08:18 | HHI.DS ---
Discharge Summary Admission Date Aug 02, 2017 at 20:55 Discharge Date: Aug 04, 2017 Admitting Diagnosis CLOSED RIGHT ANKLE FRACTURE/DISLOCATION (1) Tibia/fibula fracture ICD Code: S82.209A - Unspecified fracture of shaft of unspecified tibia, initial encounter for closed fracture; S82.409A - Unspecified fracture of shaft of unspecified fibula, initial encounter for closed fracture (2) Ankle dislocation ICD Code: S93.06XA - Dislocation of unspecified ankle joint, initial encounter Procedures Open reduction internal fixation right ankle trimalleolar fracture, stress exam of syndesmosis, open reduction and fixation right ankle syndesmosis 08-03 Date of Surgery: Aug 03, 2017 Preoperative Diagnosis: Displaced right ankle trimalleolar fracture Postoperative Diagnosis: Procedure: Open reduction internal fixation right ankle trimalleolar fracture, stress exam of syndesmosis, open reduction and fixation right ankle syndesmosis Anesthesia: Gen. Surgeon: Rock Xavier Shell Assembler(s): TIERA Vargas PA-C The surgical procedure was assisted by my physician actuarial assistant. My P.A. presence was necessary throughout this case for the manipulation and positioning of the surgical extremity. My P.A. was assisting me throughout the duration of this procedure. The skill set of a physician actuarial assistant was medically necessary to complete this procedure. During the surgical case the surgical technician was working at the back table and the physician actuarial assistant was directly assisting me. Operation and Findings: Implants used: Synthes Plan of activity: Nonweightbearing 6 weeks Patient was seen and evaluated preoperatively and found to have a displaced right ankle trimalleolar ankle fracture. Informed consent was obtained after a detailed discussion of risk and benefits of surgery. The operative site was marked. Patient was brought to the OR, placed on the OR table, and given IV sedation and general endotracheal anesthesia. IV antibiotics were given preoperatively. A timeout procedure was performed. The left leg was prepped with alcohol followed by Hibiclens and draped in the usual sterile fashion. Attention was turned towards the distal fibula. A four-inch incision was made over the distal fibula. The subcutaneous tissue was dissected with Bovie. The fracture site was visualized. The fracture site was cleaned with curets. The fracture was now reduced. The fracture keyed into anatomic alignment. K-wires were used to hold provisional fixation. A Synthes plate was selected. The plate was provisionally held to bone with K-wires. 3.5 cortical screws were used to compress the plate to bone. Multiple screws were placed above and below the fracture. Next attention was turned towards the medial malleolus. The medial malleolus supposed through a 3 cm incision. Saphenous vein was retracted. Fracture was visualized. Fracture was cleaned with curettes. Fracture was now reduced and keyed into anatomic alignment. K wires were used to hold provisional fixation. 2 guidepins for the 4.0 cannulated screws were placed in a retrograde fashion across the fracture. Fluoroscopy was used to confirm guidepin placement. Cannulated drill was placed over the guidepin. 2 appropriate length screws were now placed. Good compression was applied. Fluoroscopy confirmed well aligned fracture with well-placed hardware. Next, attention was turned to the syndesmosis. The syndesmosis was stressed. There was clear widening of the syndesmosis with external rotation of the ankle. The syndesmosis was now held in a reduced position with the ankle in neutral position. Two Synthes 3.5 cortical screws were now placed through the fibula plate into the tibia. Fluoroscopy confirmed appropriate screw placement with well-aligned syndesmosis. Incisions were thoroughly irrigated. The subcutaneous tissue was closed with 3-0 Vicryl and the skin was closed with 3-0 nylon. Sterile dressings were applied. A well molded well-padded splint was applied. The patient was transferred to Recovery in stable condition. Needle and sponge counts were correct. Rock Xavier MD Aug 03, 2017 08:53 Brief History - From Admission Mr. Fisher is a 57-year-old patient with a history of hypertension who jumped into the shallow end of a pool and immediately felt sharp pain to his right ankle. Right ankle dislocation with tibia and fibula fracture noted on ankle x- ray. The ER physician attempted manual closed reduction. The patient is admitted to the hospitalist service for surgical repair of ankle fracture dislocation. Dr. Rock Xavier, orthopedic surgeon, has been consulted. The patient is seen in his hospital room. He reports that his pain level was 10 out of 10, sharp and stabbing upon presentation to the emergency room. He states that the medication given down in the ED brought his pain level down to a 3 or 4 but it is creeping back up again. He is requesting additional pain medication. He is from [place] and was vacationing here in [place] since last Thursday. He is supposed to return home tomorrow. 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 The patient has hypertension and takes what I believe to be Diovan 80 mg p.o. every morning. His will bring his medication in the morning for clarification. He denies any recent fevers, chills, chest pain, shortness of breath, nausea, vomiting, or diarrhea. He states he was in his normal state of health prior to jumping in the pool today. CBC/BMP: 08/04/17 0439 08/04/17 0439 Significant Findings Laboratory Tests Test 08/02/17 19:50 08/03/17 05:35 08/04/17 04:39 Red Blood Count 4.28 MIL/MM3 (4.50-5.90) 3.88 MIL/MM3 (4.50-5.90) 3.60 MIL/MM3 (4.50-5.90) Activated Partial Thromboplast Time 22.4 SEC (24.3-30.1) Hemoglobin 12.8 GM/DL (13.0-17.0) 11.9 GM/DL (13.0-17.0) Hematocrit 37.0 % (39.0-51.0) 34.9 % (39.0-51.0) Random Glucose 107 MG/DL (74-106) Calcium Level 8.3 MG/DL (8.5-10.1) 8.1 MG/DL (8.5-10.1) Alkaline Phosphatase 41 U/L (45-117) 37 U/L (45-117) Estimat Glomerular Filtration Rate 78 ML/MIN (>89) 81 ML/MIN (>89) Neutrophils (%) (Auto) 74.8 % (16.0-70.0) Monocytes (%) (Auto) 9.1 % (0.0-8.0) Albumin 3.2 GM/DL (3.4-5.0) Imaging Last Impressions Ankle X-Ray 3/26/18 0000 Signed Impressions: Service Date/Time: Thursday, August 03, 2017 08:41 - CONCLUSION: 1. Normal alignment post fixation of malleolar fractures. Antoni Suh MD Tibia/Fibula X-Ray [id number]/02/[id number] Signed Impressions: Service Date/Time: Wednesday, August 02, 2017 21:15 - CONCLUSION: Alignment as above Casimiro Silver MD FACR PE at Discharge GENERAL: Alert and oriented 3 talkative and cooperative SKIN: Warm and dry. Right lower extremity is dressed HEAD: Atraumatic. Normocephalic. EYES: Pupils equal and round. No scleral icterus. No injection or drainage. Extraocular muscles intact ENT: No nasal bleeding or discharge. Mucous membranes pink and moist. Tongue is midline NECK: Trachea midline. No JVD. Supple CARDIOVASCULAR: Regular rate and rhythm. S1-S2 no S3 or S4 RESPIRATORY: No accessory muscle use. Clear to auscultation. Breath sounds equal bilaterally. GASTROINTESTINAL: Abdomen soft, non-tender, nondistended. Hepatic and splenic margins not palpable. MUSCULOSKELETAL: Extremities without clubbing, cyanosis, or edema. No obvious deformities. Right lower extremity is dressed in splint NEUROLOGICAL: Awake and alert. No obvious cranial nerve deficits. Motor grossly within normal limits. Five out of 5 muscle strength in the arms and legs except right lower extremity not able to really assess at this point. Normal speech. PSYCHIATRIC: Appropriate mood and affect; insight and judgment normal. Pt update on day of discharge Improved. Doing very well with physical therapy. Pain is controlled by medications. No nausea vomiting diarrhea or constipation. Wants to go home. Hospital Course Mr. Fisher is a 57-year-old patient with a history of hypertension who jumped into the shallow end of a pool and immediately felt sharp pain to his right ankle. Right ankle dislocation with tibia and fibula fracture noted on ankle x- ray. The patient is admitted to the hospitalist service for surgical repair of ankle fracture dislocation. Ankle dislocation with tibia and fibula fractures - The patient underwent closed reduction was attempted in the ER and a long-leg splint was applied to right leg following the procedure. - s/p Open reduction internal fixation right ankle trimalleolar fracture, stress exam of syndesmosis, open reduction and fixation right ankle syndesmosis 08-03 - Orthopedics consulted, Dr. Xavier aware, appreciate assistance cleared by orthopedic doctor for discharge. To follow-up as outpatient with PCP and consultants. - IV fluid hydration with normal saline at 100 cc/h Hypertension resume his home medications if able to be reconciled if not as needed Catapres DVT prophylaxis - SCD/BAUDILIO to nonoperative leg Patient improved. PT recommends home with a walker. Cleared by orthopedic doctor for discharge to follow-up as outpatient with PCP and consultants. Pt Condition on Discharge: Stable Discharge Disposition: Discharge Home Discharge Time: > 30 minutes Discharge Instructions DIET: Follow Instructions for: Heart Healthy Diet Activities you can perform: Non Weight Bearing Follow up Referrals: Orthopedics - 2 Weeks PCP Follow-up - 2-3 Days New Medications: Hydrocodone-Acetaminophen ([place]) 10-325 Mg Tab 1 TAB PO Q3HR PRN for PAIN, #60 TAB 0 Refills Rivaroxaban (Xarelto) 10 Mg Tab 10 MG PO DAILY for Blood Clot Prevention for 10 Days, #10 TAB 0 Refills Walker with Front Wheels (Walker with Front Wheels) 1 Mis Mis EA .XX DIRECTED, #1 0 Refills Sennosides-Docusate Sodium (Gnp Senna Plus 8.6-50 mg) 8.6 Mg-50 Mg Tab 1 TAB PO BID for Constipation, #60 TAB Continued Medications: Valsartan (Valsartan) 80 Mg Tab 80 MG PO DAILY for Blood Pressure Management, #30 TAB 0 Refills Swapna Gan MD Aug 04, 2017 08:18
[2017-08-04] MEDS: SODIUM CHLORIDE 0.9% FLUSH 10 ML FLUSH IV FLUSH SCH (08:50)
[2017-08-04] MEDS ORDERED: VALSARTAN 80 MG TAB PO SCH (09:00)
[2017-08-05 20:55] LABS: HEMOGLOBIN A1C 5.5 % (4.3-6.0)
== END 2017-08-04 11:30 | disposition home or self-care (01) | DRG 493 ==
LOC: NEPD 18:43 → NEDA 20:55 → N06A 22:30
PROVIDERS: ADMIT Hospitalist; ATTEND Hospitalist
PROC: 0QSJ04Z Reposition Right Fibula with Internal Fixation Device, Open Approach (ICD-10-PCS; 2017-08-03)
PROC: 0SSF04Z Reposition Right Ankle Joint with Internal Fixation Device, Open Approach (ICD-10-PCS; 2017-08-03)
PROC: 0QSG04Z Reposition Right Tibia with Internal Fixation Device, Open Approach (ICD-10-PCS; principal; 2017-08-03 07:52)
DX: S82.851A Displaced trimalleolar fracture of right lower leg, initial encounter for closed fracture (principal); S82.209A Unspecified fracture of shaft of unspecified tibia, initial encounter for closed fracture; I10 Essential (primary) hypertension; S93.431A Sprain of tibiofibular ligament of right ankle, initial encounter; W16.512A Jumping or diving into swimming pool striking water surface causing other injury, initial encounter; Z88.7 Allergy status to serum and vaccine
CPT/HCPCS: 27840; 73590; 73600; 76000; 80053; 83036; 83735; 84100; 84439; 84443; 85025; 85610; 85730; 86850; 86900; 86901; 93005; 94150; 96374; 96375; 99152; 99153; C1713; J0131; J0330; J0360; J0690; J1100; J1170; J1580; J2250; J2270; J2310; J2405; J2710; J3010; J3370; J7030; J7050; J7120